=== PATIENT | male | born 1980 | race Caucasian/White ===

== ENCOUNTER 2021-07-14 10:19 | Emergency (ER) | payer MEDICARE, OTHER ==
[2021-07-14] MEDS ORDERED: ANUSOL HC SUPP1 SUPP PR (12:45)
[2021-07-14] MEDS ORDERED: MIRALAX17 GM PO (12:45)
[2021-07-14] MEDS ORDERED: NAPROXEN500 MG PO (12:47)
== END 2021-07-14 13:00 | disposition home or self-care (01) ==
LOC: ER1 10:19
DX: K64.4 Residual hemorrhoidal skin tags (principal); Z87.442 Personal history of urinary calculi; Z88.0 Allergy status to penicillin
CPT/HCPCS: 99283

== ENCOUNTER → 2022-01-01 | Outpatient (CLI) | payer MEDICARE, OTHER ==
[~2022-01-01] MED LIST: ANUSOL HC SUPP1 SUPP PR; MIRALAX17 GM PO; NAPROXEN500 MG PO
== END ==
LOC: RAD 14:41
DX: M25.561 Pain in right knee (principal)
CPT/HCPCS: 73562